=== PATIENT | male | born 1970 | race Caucasian/White ===

== ENCOUNTER 2017-02-06 17:30 | Emergency (ER) | payer SELFPAY ==
[2017-02-06 17:35] VITALS: BP 146/77; PULSE 95; O2SAT 95
[2017-02-06] MEDS ORDERED: Sodium Chloride 0.9% 1000 ML 1,000 ML IV STA (17:45)
[2017-02-06] MEDS ORDERED: D50W 50 ml Abboject IV ONE ×2 (17:45→17:46)
[2017-02-06] MEDS ORDERED: Sodium Chloride 0.9% 1000 ML 1,000 ML ONE (17:46)
--- NOTE | 2017-02-06 17:50 | ERPHSYRPT ---
- History of Present Illness Time Seen by Provider: 02/06/17 17:37 Source: patient, police Exam Limitations: clinical condition Patient Subjective Stated Complaint: pt was found in cell having seizure and chocking on peanut butter,pts bs was 21 and was given glucagon Triage Nursing Assessment: pt now more alert,knows name, time and place, resp easy, skin w/d pink,pt is known diabetic,no edema, has moist nonproductive cough Physician History: blood sugar 21 station captain at the custodial, no injury, decreased mental status, slow to respond, treated w/ glucagon at the custodial, blood sugar 54 at this time Timing/Duration: today Severity: moderate Associated Symptoms: No vomiting, No abdominal pain, No shortness of breath, No chest pain, No fever, No headaches Allergies/Adverse Reactions: No Known Drug Allergies Allergy (Verified 02/06/17 17:36) Home Medications: Gabapentin [Neurontin] 600 mg PO TID 02/20/14 [History] Insulin Regular, Human [Humulin R] 6 unit SQ QAM 02/20/14 [History] Insulin Regular, Human [NovoLIN R] 4 unit SQ QPM 02/20/14 [History] NPH, Human Insulin Isophane [Humulin N] 18 unit SQ QAM 02/20/14 [History] NPH, Human Insulin Isophane [Humulin N] 22 unit SQ QPM 02/20/14 [History] Alprazolam 1 mg [Xanax 1 mg] 1 mg PO TIDPRN PRN 01/18/15 [History] Furosemide [Lasix] 40 mg PO DAILY 01/18/15 [History] Lisinopril 5 mg [Zestril 5 MG] 5 mg PO DAILY 01/18/15 [History] Fluticasone Propionate [Flonase NASAL] 1 spray NS BID 02/27/15 [History] Albuterol 8 gm Mdi Hfa [Ventolin Hfa MDI] 2 puffs IH Q4H PRN PRN 05/16/15 [History] Hx Tetanus, Diphtheria Vaccination/Date Given: No Hx Influenza Vaccination/Date Given: No Hx Pneumococcal Vaccination/Date Given: No Immunizations Up to Date: Yes - Review of Systems Constitutional: No Fever Eyes: No Vision Changes Ears, Nose, & Throat: No Symptoms Respiratory: No Symptoms Cardiac: No Symptoms Abdominal/Gastrointestinal: No Symptoms Skin: No Symptoms Neurological: Lethargy, No Focal Weakness, No Headache Psychological: No Symptoms - Past Medical History Pertinent Past Medical History: Yes Neurological History: Other ENT History: No Pertinent History Cardiac History: Hypertension Respiratory History: COPD Endocrine Medical History: Diabetes Type I Musculoskeletal History: Other GI Medical History: No Pertinent History History: Renal Disease, Other Psycho-Social History: No Pertinent History Male Reproductive Disorders: No Pertinent History Other Medical History: HEAD INJURY, Radial paralysis. UROSTOMY. 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 PREVIOUS CRANIOTOMY - Social History Smoking Status: Never smoker Exposure to second hand smoke: Yes Drug Use: methamphetamines Patient Lives Alone: No (in custodial) - Nursing Vital Signs Nursing Vital Signs: Initial Vital Signs Temperature 97.3 F 02/06/17 17:30 Pulse Rate 95 H 02/06/17 17:30 Respiratory Rate 16 02/06/17 17:30 Blood Pressure 146/77 02/06/17 17:30 O2 Sat by Pulse Oximetry 95 02/06/17 17:30 Pain Scale Pain Intensity 0 - Physical Exam General Appearance: no apparent distress Eye Exam: PERRL/EOMI Ears, Nose, Throat Exam: moist mucous membranes Neck Exam: normal inspection Respiratory Exam: normal breath sounds Cardiovascular Exam: regular rate/rhythm Gastrointestinal/Abdomen Exam: soft, No tenderness Back Exam: normal range of motion Extremity Exam: normal range of motion Neurologic Exam: alert, oriented x 3, cooperative Skin Exam: normal color, warm, dry SpO2 Interpretation: normal SpO2: 95 Oxygen Delivery: Room Air - Course Nursing assessment & vital signs reviewed: Yes Ordered Tests: Active Orders 24 hr Category Date Time Status IV Insertion STAT Care 02/06/17 17:45 Active CBC W DIFF Stat Lab 02/06/17 18:00 Completed CMP Stat Lab 02/06/17 18:00 Completed Medication Summary Discontinued Medications Generic Name Dose Route Start Last Admin Trade Name Freq PRN Reason Stop Dose Admin Dextrose 50 ml 02/06/17 17:45 02/06/17 18:05 D50w 50 Ml Abboject IV 02/06/17 17:46 50 ml STAT ONE Administration Dextrose Confirm 02/06/17 17:46 D50w 50 Ml Abboject Administered 02/06/17 17:47 Dose 50 ml IV .STK-MED ONE Sodium Chloride 1,000 mls @ 999 mls/hr 02/06/17 17:45 02/06/17 18:05 Sodium Chloride 0.9% 1000 Ml IV 02/06/17 18:45 999 mls/hr .Q1H1M STA Administration Sodium Chloride Confirm 02/06/17 17:46 Sodium Chloride 0.9% 1000 Ml Administered 02/06/17 17:47 Dose 1,000 mls @ ud .ROUTE .STK-MED ONE Lab/Rad Data: Laboratory Result Diagrams 02/06/17 18:00 02/06/17 18:00 Laboratory Results 02/06/17 02/06/17 Range/Units 18:00 18:00 WBC 9.1 (4.0-10.5) K/mm3 RBC 3.80 L (4.1-5.6) M/mm3 Hgb 11.3 L (12.5-18.0) gm/dl Hct 34.1 L (42-50) % MCV 89.7 (78-100) fl MCH 29.7 (26-32) pg MCHC 33.1 (32-36) g/dl RDW 12.0 (11.5-14.0) % Plt Count 213 (150-450) K/mm3 MPV 9.6 H (6-9.5) fl Gran % 58.0 (36.0-66.0) % Lymphocytes % 30.4 (24.0-44.0) % Monocytes % 9.5 (0.0-12.0) % Eosinophils % 2.0 (0.00-5.0) % Basophils % 0.1 (0.0-0.4) % Basophils # 0.01 (0-0.4) Sodium 141 (136-145) mEq/L Potassium 3.4 L (3.5-5.1) mEq/L Chloride 106 (98-107) mEq/L Carbon Dioxide 23.9 (21-32) mEq/L Anion Gap 14.6 (5-15) MEQ/L BUN 35 H (9-20) mg/dL Creatinine 1.60 H (0.55-1.30) mg/dl Estimated GFR 50 ML/MIN Glucose 101 (70-110) MG/DL Calcium 9.4 (8.5-10.1) mg/dL Total Bilirubin 0.30 (0.2-1.0) mg/dL AST 26 (15-37) U/L ALT 40 (12-78) U/L Alkaline Phosphatase 58 (46-116) U/L Serum Total Protein 7.2 (6.4-8.2) gm/dL Albumin 4.0 (3.4-5.0) g/dL - Progress Progress: improved Discussed with : Dayanna Will see patient in: office Counseled pt/family regarding: lab results, diagnosis, need for follow-up - Departure Time of Disposition: 18:50 Departure Disposition: Home Clinical Impression: Hypoglycemia Condition: Good Critical Care Time: No Referrals: GENESIS GALICIA [Primary Care Provider] - Additional Instructions: pt improved, awake and alert, having eaten in the ER, has access to sliding insulin scale at the custodial, will continue his present medical regimen
[2017-02-06 18:09] LABS: BASOPHIL % 0.1 % (0.0-0.4); Lymphocytes % 30.4 % (24.0-44.0); Mean Cell Volume 89.7 fl (78-100); Mean Corpuscular Hemoglobin 29.7 pg (26-32); Mean Platelet Volume 9.6 fl (6-9.5); Monocytes % 9.5 % (0.0-12.0); Platelet Count 213 K/mm3 (150-450); White Blood Count 9.1 K/mm3 (4.0-10.5)
[2017-02-06 18:31] LABS: ANION GAP 14.6 MEQ/L (5-15); BILIRUBIN,TOTAL 0.3 mg/dL (0.2-1.0); Carbon Dioxide 23.9 mEq/L (21-32); Potassium 3.4 mEq/L (3.5-5.1); Total Protein 7.2 gm/dL (6.4-8.2)
== END 2017-02-06 19:05 | disposition home or self-care (01) ==
LOC: ED 17:30
DX: E16.2 Hypoglycemia, unspecified (principal); E10.9 Type 1 diabetes mellitus without complications; Z79.84 Long term (current) use of oral hypoglycemic drugs; Z79.4 Long term (current) use of insulin; Z79.899 Other long term (current) drug therapy; I10 Essential (primary) hypertension; J44.9 Chronic obstructive pulmonary disease, unspecified
CPT/HCPCS: 36000; 36415; 80053; 82962; 85025; 96374; 99283; 99284